=== PATIENT | female | born 1955 | race Caucasian/White ===

== ENCOUNTER → 2017-03-04 | Outpatient (CLI) | payer BC ==
[2017-03-04 09:17] LABS: Basophils # (A) 0.1 k/uL (0-0.2); Basophils % (A) 1 %; CH 30.3; CHCM 33.9; Eosinophils # (A) 0.2 k/uL (0-0.7); Eosinophils % (A) 2 %; HCT 40.5 % (34.0-46.0); HDW 2.72; HGB 13.7 gm/dL (11.4-16.0); Luc # (Auto) 0.18; Luc % (Auto) 2; Lymphocytes # (A) 1.8 k/uL (1.0-4.8); Lymphocytes % (A) 22 %; MCH 30.3 pg (25.0-35.0); MCHC 33.8 g/dL (31.0-37.0); MCV 89.7 fL (80.0-100.0); Mean Platelet Volume 6.9; Monocytes # (A) 0.4 k/uL (0-1.0); Monocytes % (A) 5 %; Neutrophils # (A) 5.4 k/uL (1.3-7.7); Neutrophils % (A) 68 %; RBC 4.51 m/uL (3.80-5.40); RDW 13.7 % (11.5-15.5); WBC (Perox) 8.12
[2017-03-04 10:06] LABS: Anion Gap 11 mmol/L; Blood Urea Nitrogen 22 mg/dL (7-17); Calcium 10.2 mg/dL (8.4-10.2); Carbon Dioxide 25 mmol/L (22-30); Chloride 107 mmol/L (98-107); Glucose 111 mg/dL (74-99); Non-African American GFR(MDRD) >60 (>60 ml/min/1.73 sqM); Sodium 143 mmol/L (137-145)
[2017-03-04 10:09] LABS: Rheumatoid Factor, Qnt <9 IU/mL (<12)
== END | disposition home or self-care (01) ==
LOC: LABWHC1 08:22
PROVIDERS: ATTEND Nurse Practitioner Women's Health
DX: M25.561 Pain in right knee (principal); Z01.812 Encounter for preprocedural laboratory examination
CPT/HCPCS: 36415; 80048; 85025; 86038; 86431

== ENCOUNTER → 2017-03-13 | Outpatient (CLI) | payer BC ==
--- NOTE | 2017-03-17 10:47 | MM ---
Reason for exam: screening (asymptomatic). Last mammogram was performed 1 year and 9 months ago. History: Patient is postmenopausal. Family history of breast cancer in mother at age 50. Physical Findings: A clinical breast exam by your physician is recommended on an annual basis and results should be correlated with mammographic findings. MG Screening Mammo w CAD Bilateral CC and MLO view(s) were taken. Prior study comparison: June 21, 2015, bilateral MG screening mammo w CAD. June 28, 2013, bilateral digital screening mammo w/CAD. There are scattered fibroglandular densities. No significant changes when compared with prior studies. ASSESSMENT: Benign, BI-RAD 2 RECOMMENDATION: Routine screening mammogram of both breasts in 1 year.
== END | disposition home or self-care (01) ==
LOC: RADMAMWWP 07:20
PROVIDERS: ATTEND Family Medicine
DX: Z12.31 Encounter for screening mammogram for malignant neoplasm of breast (principal); Z80.3 Family history of malignant neoplasm of breast

== ENCOUNTER → 2017-08-20 | Outpatient (CLI) | payer BC ==
[2017-08-20 15:23] LABS: Basophils # (A) 0.1 k/uL (0-0.2); Basophils % (A) 1 %; Eosinophils # (A) 0.1 k/uL (0-0.7); Eosinophils % (A) 2 %; HCT 44.2 % (34.0-46.0); Lymphocytes % (A) 26 %; MCH 29.1 pg (25.0-35.0); MCHC 31.8 g/dL (31.0-37.0); MCV 91.8 fL (80.0-100.0); Mean Platelet Volume 7.9; Monocytes # (A) 0.4 k/uL (0-1.0); Monocytes % (A) 5 %; Neutrophils # (A) 4.9 k/uL (1.3-7.7); Neutrophils % (A) 65 %; Platelet Count 205 k/uL (150-450); RBC 4.82 m/uL (3.80-5.40); RDW 15.5 % (11.5-15.5); WBC 7.6 k/uL (3.8-10.6)
== END | disposition home or self-care (01) ==
LOC: LABPAT 14:07
PROVIDERS: ATTEND Obstetrics & Gynecology
DX: Z01.818 Encounter for other preprocedural examination (principal); Z01.812 Encounter for preprocedural laboratory examination; I10 Essential (primary) hypertension; D09.9 Carcinoma in situ, unspecified
CPT/HCPCS: 36415; 85025; 93005

== ENCOUNTER 2017-09-01 08:28 | Day surgery (SDC) | payer BC ==
[2017-08-21 15:48] VITALS: BMI 31.6
--- NOTE | 2017-08-28 12:02 | HP ---
HISTORY AND PHYSICAL DATE OF ADMISSION: 09/01/2017. HISTORY: This is a 62-year-old 3, para 3 woman who had an abnormal Pap smear. Further evaluation with colposcopic biopsies revealed high-grade cervical dysplasia. She is scheduled to undergo cervical cold knife cone biopsy. ALLERGIES: None. MEDICATIONS: 1. Atorvastatin 40 mg q. day. 2. Levothyroxine 88 mcg q. day. 3. Lisinopril 20 mg q. day. 4. Travatan Z 0.004% drops. PAST MEDICAL HISTORY: Hypothyroidism and hypercholesterolemia. PAST SURGICAL HISTORY: Carpal tunnel release, heel spur surgery and arthroscopy. PAST SHOP WELDER HISTORY: She is a 3, para 3 with history of 3 vaginal deliveries. She is menopausal with no postmenopausal bleeding. She has the above history of abnormal Pap smears. FAMILY HISTORY: Significant for diabetes and heart disease. SOCIAL HISTORY: She smokes 1 pack of cigarettes per day. She is and is retired. REVIEW OF SYSTEMS: Negative for postmenopausal bleeding, vaginal discharge, pelvic pain, abdominal pain, recent weight gain or weight loss. PHYSICAL EXAM: Height 5 feet 3 inches, weight 181 pounds, blood pressure 140/82, heart rate 86. In general, this is a pleasant female in no apparent distress. HEENT exam is unremarkable with no palpable lymphadenopathy or thyromegaly. The lungs are clear to auscultation bilaterally and the heart is of regular rate and rhythm. The abdomen is soft and nontender with no rebound, no guarding and no flank pain. On pelvic examination, she has normal female external genitalia without lesions or irritation. On colposcopic evaluation of the cervix, she did have multiple areas with acetowhite changes noted consistent with history of dysplasia. There are no gross visible lesions. The uterus is small freely mobile and in the midline and there are no adnexal abnormalities palpable. ASSESSMENT: A 62-year-old, 3, para 3 woman with high-grade cervical dysplasia, who is scheduled to undergo cervical cold knife cone biopsy on of 09/01/2017. This procedure and its risks and anticipated recovery have been reviewed with the patient. Risks include bleeding, infection, injury to uterus, bowel or bladder. The patient understands these risks and agrees to proceed. MMODL / IJN: [id number] /
[~2017-09-01 08:28] MED LIST: DEXAMETHASONE SOD PHOSPHATE 10 MG/ML 1 ML VIAL IV ONE; LACTATED RINGERS 1,000 ML IV SCH; MIDAZOLAM 2 MG/2 ML VIAL IV PRN; MORPHINE SULFATE 4 MG/ML SYRINGE IV PRN; ONDANSETRON 4 MG/2 ML VIAL IVP ONE; Pre Op ABX Message 1 EACH MISC MISCELLANE ONE; SCOPOLAMINE 1.5MG/72HR PATCH TRANSDERM ONE
[2017-09-01] MEDS ORDERED: LIDOCAINE 1% 20 ML VIAL (10MG/ML) FOR IV START INTRADERMA ONE (09:06)
[2017-09-01] MEDS ORDERED: PROPOFOL 10 MG/ML 20 ML VIAL IV ONE (10:26)
[2017-09-01] MEDS ORDERED: ePHEDrine SULFATE/0.9% NACL/PF 50 MG/5 ML SYRINGE IV ONE (10:26)
[2017-09-01] MEDS ORDERED: fentaNYL (PF) 50 MCG/ML 2 ML AMP ONE (10:26)
[2017-09-01] MEDS ORDERED: PHENYLEPHRINE-0.9% NACL SYG 1 MG/10 ML SYRINGE ONE (10:26)
[2017-09-01] MEDS ORDERED: SUCCINYLCHOLINE CHLORIDE 100 MG/5 ML SYR IV ONE (10:26)
[2017-09-01] MEDS ORDERED: MIDAZOLAM 2 MG/2 ML VIAL ONE (10:26)
[2017-09-01] MEDS ORDERED: LIDOCAINE 1% INJ 10MG/ML (20 ML MDV) ONE (10:26)
[2017-09-01] MEDS ORDERED: LIDOCAINE 1%/EPI 1:200,000 MPF 10 ML VIAL SUBMUCOSAL ONE (10:43)
[2017-09-01] MEDS ORDERED: IODINE/POTASS IOD (LUGOLS) BTL TOPICAL ONE (10:44)
[2017-09-01] MEDS ORDERED: FERRIC SUBSULFATE (MONSELS) JAR TOPICAL ONE (10:57)
--- NOTE | 2017-09-01 11:07 | P.OP ---
Date of Procedure: 09/01/17 Preoperative Diagnosis: SHARON 3 Postoperative Diagnosis: Same Procedure(s) Performed: Cervical cold knife cone biopsy Anesthesia: CHRISTY Surgeon: Lori Rivera Estimated Blood Loss (ml): 15 IV fluids (ml): 600 Urine output (ml): 50 Pathology: other (Cervical biopsy) Condition: stable Disposition: PACU Operative Findings: Grossly normal-appearing cervix Description of Procedure: After the patient and her were met in the preoperative holding area and all questions were answered, she was taken the operating room her anesthetic was administered without incident. She was in positioned, prepped and draped in the dorsal lithotomy position. The bladder was drained for approximately 50 mL of clear urine. Of note the urethra was small and constricted. 12-Cypriot straight catheter was necessary to pass through the urethral orifice. Once the bladder was drained speculum was placed in the vagina and the cervix was grasped anteriorly with a single-tooth tenaculum. Paracervical block with lidocaine plus epinephrine was placed. Lugol solution was applied to the cervix to delineate the transformation zone. Sutures were placed at the 3 and 9 o'clock position and were tagged. 11 blade scalpel was utilized to circumferentially on excise the cervix at the level of the transformation zone. This was then angled in to facilitate removal of the cone shaped biopsy. Electrocautery was then utilized to cauterize the base as well as the external edges. Monsel solution was also applied to the base. There was some persistent small amount of bleeding from the apex of the cone biopsy. Pressure was held in this area and Surgicel was placed with pressure in the base of the biopsy site. Hemostasis was then noted. The sutures were tied down at 3 and 9: 00 to further aid in hemostasis. She was awoken from anesthetic and after instruments were removed from the vagina. All counts reported to me as correct. The patient was transported to recovery in stable condition.
[2017-09-01 11:21] VITALS: TEMP 97.1
[2017-09-01 11:33] VITALS: RESP 16
[2017-09-01 12:25] VITALS: BP 129/73; PULSE 75
== END 2017-09-01 12:35 | disposition home or self-care (01) ==
LOC: OR 08:28
PROVIDERS: ATTEND Obstetrics & Gynecology
DX: D06.9 Carcinoma in situ of cervix, unspecified (principal); E03.9 Hypothyroidism, unspecified; I10 Essential (primary) hypertension; E78.00 Pure hypercholesterolemia, unspecified; F17.210 Nicotine dependence, cigarettes, uncomplicated; Z79.890 Hormone replacement therapy; Z79.899 Other long term (current) drug therapy
CPT/HCPCS: 88307; 57520; J2250; J1100; J2405; J2001; J3010; J2370; J0330; J2704

== ENCOUNTER → 2018-07-20 | Outpatient (CLI) | payer BC ==
--- NOTE | 2018-07-23 13:41 | MM ---
Reason for exam: screening (asymptomatic). Last mammogram was performed 1 year and 4 months ago. History: Patient is postmenopausal. Family history of breast cancer in mother at age 50. Physical Findings: A clinical breast exam by your physician is recommended on an annual basis and results should be correlated with mammographic findings. MG Screening Mammo w CAD Bilateral CC and MLO view(s) were taken. Prior study comparison: March 13, 2017, bilateral MG screening mammo w CAD. June 21, 2015, bilateral MG screening mammo w CAD. The breast tissue is heterogeneously dense. This may lower the sensitivity of mammography. No significant changes when compared with prior studies. ASSESSMENT: Benign, BI-RAD 2 RECOMMENDATION: Routine screening mammogram of both breasts in 1 year.
== END | disposition home or self-care (01) ==
LOC: RADMAMWWP 07:52
PROVIDERS: ATTEND Family Medicine
DX: Z12.31 Encounter for screening mammogram for malignant neoplasm of breast (principal); Z80.3 Family history of malignant neoplasm of breast
CPT/HCPCS: 77067

== ENCOUNTER → 2019-10-08 | Outpatient (CLI) | payer OTHER ==
--- NOTE | 2019-10-08 14:31 | MM ---
Reason for exam: screening (asymptomatic). Last mammogram was performed 1 year and 3 months ago. History: Patient is postmenopausal. Family history of breast cancer in mother at age 50. Took hormonal contraceptives for 2 years beginning at age 18. Physical Findings: A clinical breast exam by your physician is recommended on an annual basis and results should be correlated with mammographic findings. MG Screening Mammo w CAD Bilateral CC and MLO view(s) were taken. Prior study comparison: July 20, 2018, bilateral MG screening mammo w CAD. March 13, 2017, bilateral MG screening mammo w CAD. The breast tissue is heterogeneously dense. This may lower the sensitivity of mammography. No suspicious abnormality. No significant changes when compared with prior studies. ASSESSMENT: Negative, BI-RAD 1 RECOMMENDATION: Routine screening mammogram of both breasts in 1 year.
== END | disposition home or self-care (01) ==
LOC: RADMAMWWP 08:24
PROVIDERS: ATTEND Nurse Practitioner Women's Health
DX: Z12.31 Encounter for screening mammogram for malignant neoplasm of breast (principal); Z80.3 Family history of malignant neoplasm of breast
CPT/HCPCS: 77067

== ENCOUNTER → 2020-10-10 | Outpatient (CLI) | payer MEDICARE ==
--- NOTE | 2020-10-12 10:44 | MM ---
Reason for exam: screening (asymptomatic). Last mammogram was performed 1 year ago. History: Patient is postmenopausal. Family history of breast cancer in mother at age 50. Took hormonal contraceptives for 2 years beginning at age 18. Physical Findings: A clinical breast exam by your physician is recommended on an annual basis and results should be correlated with mammographic findings. MG 3D Screening Mammo W/Cad Bilateral CC and MLO view(s) were taken. Prior study comparison: October 08, 2019, bilateral MG screening mammo w CAD. July 20, 2018, bilateral MG screening mammo w CAD. The breast tissue is heterogeneously dense. This may lower the sensitivity of mammography. No significant changes when compared with prior studies. ASSESSMENT: Negative, BI-RAD 1 RECOMMENDATION: Routine screening mammogram of both breasts in 1 year.
== END ==
LOC: RADMAMWWP 16:25
PROVIDERS: ATTEND Family Medicine
DX: Z12.31 Encounter for screening mammogram for malignant neoplasm of breast (principal); Z78.0 Asymptomatic menopausal state; Z80.3 Family history of malignant neoplasm of breast
CPT/HCPCS: 77063; 77067

== ENCOUNTER 2021-05-06 10:33 | Emergency (ER) | payer MEDICARE ==
[2021-05-06 11:39] VITALS: TEMP 98.5
[2021-05-06 12:01] VITALS: RESP 20
[2021-05-06] MEDS ORDERED: FLUORESCEIN STRIPS 1 MG STRIP RIGHT EYE ONE (12:54)
--- NOTE | 2021-05-06 13:08 | ED ---
General Adult HPI - General Chief complaint: Eye Problems Stated complaint: post op eye infection Time Seen by Provider: 05/06/21 11:55 Source: patient Mode of arrival: ambulatory Limitations: no limitations - History of Present Illness Initial comments: This is a 66-year-old female with a history of recent cataract surgery who presents to the emergency department accompanied by her spouse for evaluation of left eye redness and drainage. Patient states her symptoms began late Friday evening and worsened throughout the weekend. Sates when she woke up this morning her vision was "foggy" in her left eye and she had a small amount of yellow drainage. Patient she expected to have sensitivity to light, but reports that it has worsened over the past 2 days as well. States she has been using her eyedrops as prescribed. Denies periorbital pain or tenderness; no trauma or injury. - Related Data Home Medications Medication Instructions Recorded Confirmed Atorvastatin [Lipitor] 40 mg PO DAILY 08/21/17 09/01/17 Levothyroxine Sodium 88 mcg PO DAILY 08/21/17 09/01/17 lisinopriL [Zestril] 20 mg PO DAILY 08/21/17 09/01/17 Allergies Allergy/AdvReac Type Severity Reaction Status Date / Time No Known Allergies Allergy Verified 05/06/21 11:39 Review of Systems ROS Statement: Those systems with pertinent positive or pertinent negative responses have been documented in the HPI. ROS Other: All systems not noted in ROS Statement are negative. Past Medical History Past Medical History: Hypertension, Thyroid Disorder Additional Past Medical History / Comment(s): glaucoma, cataracts History of Any Multi-Drug Resistant Organisms: None Reported Past Surgical History: Orthopedic Surgery Additional Past Surgical History / Comment(s): cataract removal, carpal tunnel, Past Psychological History: No Psychological Hx Reported Smoking Status: Never smoker Past Alcohol Use History: None Reported Past Drug Use History: None Reported General Exam Limitations: no limitations General appearance: alert, in no apparent distress, other (Well-developed, well- nourished female in no acute distress) Eye exam: Present: other (Wood's lamp exam of the affected eye showed no focal area of fluorescein uptake) Expanded Eyelids: Normal Inspection: Bilateral Pupils: Regular, Round: Bilateral Sclera/Conjunctival: Injection: Left (cataract surgery 04/30/21) Visual acuity (R) = 20/: 40 Visual acuity (L) = 20/: 70 With correction: Yes (contact OS) IOP (L) in mmH IOP measured with: [facility]open ENT exam: Present: normal exam, normal oropharynx Respiratory exam: Present: normal lung sounds bilaterally. Absent: respiratory distress, wheezes, rales, rhonchi, stridor Cardiovascular Exam: Present: regular rate, normal rhythm, normal heart sounds. Absent: systolic murmur, diastolic murmur, rubs, gallop, clicks Neurological exam: Present: alert, oriented X3, CN II-XII intact Psychiatric exam: Present: normal affect, normal mood Course Vital Signs 05/06/21 05/06/21 11:34 11:55 Temperature 98.5 F Pulse Rate 72 70 Respiratory 18 20 Rate Blood Pressure 155/90 155/92 O2 Sat by Pulse 96 98 Oximetry - Reevaluation(s) Reevaluation #1: 05/06/21 14:[address] Lake regarding physical exam findings. He is planning to see her in the office tonight and will call back with further instructions. Medical Decision Making - Medical Decision Making 66-year-old female with history of recent left eye surgery was evaluated. Case was discussed with Dr. Lake. Patient is to follow-up with him in the office this today. Disposition Clinical Impression: Visual disturbance, S/P cataract surgery Disposition: HOME SELF-CARE Condition: Stable Instructions (If sedation given, give patient instructions): Blurred Vision (ED) Additional Instructions: Dr. Lake's partner will see you in his office at 4:45 for further evaluation and treatment. The office is closed so please remain in your vehicle until you see the provider arrive. Return to the emergency department with any new, worsening, or concerning symptoms. Is patient prescribed a controlled substance at d/c from ED?: No Referrals: Cody Martin MD [Primary Care Provider] - 1-2 days Time of Disposition: 16:01
[2021-05-06 16:09] VITALS: BP 150/90; PULSE 67
== END 2021-05-06 16:09 | disposition home or self-care (01) ==
LOC: EC 10:33
DX: H53.8 Other visual disturbances (principal); I10 Essential (primary) hypertension; E07.9 Disorder of thyroid, unspecified; Z98.42 Cataract extraction status, left eye
CPT/HCPCS: 99283

== ENCOUNTER → 2023-07-30 | Outpatient (CLI) | payer MEDICARE ==
--- NOTE | 2023-08-05 19:12 | MM ---
Reason for Exam: Screening (asymptomatic). Last mammogram was performed 1 year(s) and 7 month(s) ago. Patient History: Menarche at age 13. First Full-Term at age 22. Postmenopausal. Hormonal Contraceptives for 2 years from age 18 until age 20. Mother had breast cancer, age 50. Risk Values: Bernarda 5 year model risk: 3.3%. NCI Lifetime model risk: 10.4%. Prior Study Comparison: 10/08/2019 Bilateral Screening Mammogram, [facility]. 10/10/2020 Bilateral Screening Mammogram, [facility]. 12/28/2021 Bilateral MG 3D screening mammo w/cad, [facility]. Tissue Density: There are scattered fibroglandular densities. Findings: Analyzed By CAD. There is no suspicious group of microcalcifications or new suspicious mass in either breast. Overall Assessment: Negative, BI-RAD 1 Management: Screening Mammogram of both breasts in 1 year. See note below in regards to patient's increased 5 year Bernarda score. Patient should continue monthly self-breast exams. A clinical breast exam by your physician is recommended on an annual basis. This exam should not preclude additional follow-up of suspicious palpable abnormalities. Note on Bernarda scores and lifetime risk: 1. A Bernarda score greater than 3% is considered moderate risk. If this is the case, consider specialist referral to assess eligibility for a risk reducing agent. 2. If overall lifetime risk for the development of breast cancer is 20% or higher, the patient may qualify for future screening with alternating mammogram and breast MRI. Electronically signed and approved by: Mahendra Torres M.D. Radiologist
== END | disposition home or self-care (01) ==
LOC: RADMAMWWP 14:51
PROVIDERS: ATTEND Family Medicine
DX: Z12.31 Encounter for screening mammogram for malignant neoplasm of breast (principal); Z80.3 Family history of malignant neoplasm of breast; Z78.0 Asymptomatic menopausal state
CPT/HCPCS: 77063; 77067

== ENCOUNTER → 2024-11-08 | Outpatient (CLI) | payer MEDICARE ==
--- NOTE | 2024-11-08 15:58 | MM ---
Reason for Exam: Screening (asymptomatic). Last mammogram was performed 1 year(s) and 3 month(s) ago. Patient History: Menarche at age 13. First Full-Term at age 22. Postmenopausal. Hormonal Contraceptives for 2 years from age 18 until age 20. Mother had breast cancer, age 50. Risk Values: Bernarda 5 year model risk: 3.3%. NCI Lifetime model risk: 9.9%. Prior Study Comparison: 10/10/2020 Bilateral Screening Mammogram, [facility]. 12/28/2021 Bilateral MG 3D screening mammo w/cad, [facility]. 07/30/2023 Bilateral MG 3D screening mammo w/cad, [facility]. Tissue Density: There are scattered areas of fibroglandular density. Findings: Analyzed By CAD. There is no suspicious group of microcalcifications or new suspicious mass in either breast. Overall Assessment: Negative, BI-RAD 1 Management: Screening Mammogram of both breasts. . Patient should continue monthly self-breast exams. A clinical breast exam by your physician is recommended on an annual basis. This exam should not preclude additional follow-up of suspicious palpable abnormalities. Note on Bernarda scores and lifetime risk: 1. A Bernarda score greater than 3% is considered moderate risk. If this is the case, consider specialist referral to assess eligibility for a risk reducing agent. 2. If overall lifetime risk for the development of breast cancer is 20% or higher, the patient may qualify for future screening with alternating mammogram and breast MRI. [facility], , 11/08/2024 3:55 PM. Electronically signed and approved by: Mk Alvarado M.D. Radiologis
== END | disposition home or self-care (01) ==
LOC: RADMAMWWP 15:35
PROVIDERS: ATTEND Family Medicine
DX: Z12.31 Encounter for screening mammogram for malignant neoplasm of breast (principal); R92.323 Mammographic fibroglandular density, bilateral breasts; Z78.0 Asymptomatic menopausal state; Z80.3 Family history of malignant neoplasm of breast; Z92.0 Personal history of contraception
CPT/HCPCS: 77063; 77067